=== PATIENT | male | born 1960 | race Caucasian/White ===

== ENCOUNTER 2022-08-04 09:18 | Emergency (ER) | payer SELFPAY ==
[2022-08-04 09:51] VITALS: PULSE 102; RESP 20; TEMP 98.2; BMI 34.9
[2022-08-04 10:27] VITALS: BP 147/90
== END 2022-08-04 10:30 | disposition home or self-care (01) ==
LOC: FER 09:18
DX: S93.401A Sprain of unspecified ligament of right ankle, initial encounter (principal); X50.0XXA Overexertion from strenuous movement or load, initial encounter
CPT/HCPCS: 73610-TC-RT-FY; 99283-25